=== PATIENT | male | born 1980 | race African-American/Black ===

== ENCOUNTER 2025-01-31 18:12 | Emergency (ER) | payer MEDICAID ==
[~2025-01-31] VITALS: Ht 175.3 cm; Wt 89.0 kg
[2025-01-31 18:13] VITALS: BP 106/72; PULSE 102; RESP 15; TEMP 98.4; O2SAT 94
[2025-01-31] MEDS ORDERED: TETANUS-DIPTH-ACEL PERTUSSIS 0.5ML SYR Tdap IM ONE (19:15)
[2025-01-31] MEDS ORDERED: KETOROLAC TROMETH 60MG/2ML VIAL IM ONE (19:15)
--- NOTE | 2025-01-31 19:37 | DVH ---
EXAM: XY L HAND 3V XRAY CLINICAL HISTORY: Crush injury COMPARISON: None TECHNIQUE: XY L HAND 3V XRAY Findings/Impression: 3 views of the left hand. Possible nondisplaced fracture of the base of the 1st proximal phalanx. Moderate soft tissue edema. No definite fracture of the presumed 3rd digit on the lateral view. There is no evidence of dislocation, blastic, or lytic lesions. No radiopaque foreign bodies.
--- NOTE | 2025-01-31 20:44 | ED.PDOC ---
Musculoskeletal HPI Comments 44 y/o M presents with c/c left hand pain and swelling. Patient reports on onset of symptoms after crushing and injuring his hand, while moving a fridge, 3x days ago. Patient states that he had a small abrasion with minimal bleeding. Patient denies any fever nausea or vomiting. Vital signs were stable on arrival. Chief Complaint: Upper Extremity Time Seen by MD: 19:00 Primary Care Provider: DENIES Reviewed Notes: Nurses Notes, Medications, Allergies Allergies: Coded Allergies: NO KNOWN ALLERGIES (Unverified , 02/17/15) Information Source: Patient Mode of Arrival: Ambulatory Location: Left Extremity Location: Hand Timing: Days Prehospital treatment: None Severity: Moderate Able to Move Extremity: Yes Bear Weight: Limited Pain: Moderate Mechanism: Crush Circumstances: Accident Onset of Symptoms: After Trauma Symptoms: Swelling, Pain DVT Risk Factors: NONE Last Tetanus: UTD Associated signs and symptoms: None Past Medical History PAST MEDICAL HISTORY: Denies Surgical History: Denies all surgeries Family History Family History: Reviewed,noncontributory to illness, No family hx of Cancer, No family hx of DM, No family hx of Heart maximus, No family hx of HTN, No family hx ofKidney maximus, No family hx of Liver maximus, No family hx of Lung maximus, No family hx of Stroke Social History Smoker: Non-Smoker Alcohol: Denies ETOH Use Drugs: Denies Drug Use Lives In: Home Constitutional: denies: chills, diaphoresis, fatigue, fever, malaise, sweats, weakness, others EENTM: denies: blurred vision, double vision, ear bleeding, ear discharge, ear drainage, ear pain, ear ringing, eye pain, eye redness, hearing loss, mouth pain, mouth swelling, nasal discharge, nose bleeding, nose congestion, nose pain, photophobia, tearing, throat pain, throat swelling, voice changes, others Respiratory: denies: cough, hemoptysis, orthopnea, SOB at rest, shortness of breath, SOB with excertion, stridor, wheezing, others Cardiovascular: denies: chest pain, dizzy spells, diaphoresis, Dyspnea on exertion, edema, irregular heart beat, left arm pain, lightheadedness, palpitations, PND, syncope, others Gastrointestinal: denies: abdomen distended, abdominal pain, blood streaked bowels, constipated, diarrhea, dysphagia, difficulty swallowing, hematemesis, melena, nausea, poor appetite, poor fluid intake, rectal bleeding, rectal pain, vomiting, others Genitourinary: denies: burning, dysuria, flank pain, frequency, hematuria, incontinence, penile discharge, penile sore, pain, testicle pain, testicle swelling, urgency, others Neurological: denies: dizziness, fainting, headache, left sided numbness, left sided weakness, numbness, paresthesia, pre-existing deficit, right sided numbness, right sided weakness, seizure, speech problems, tingling, tremors, weakness, others Musculoskeletal: reports: others (Left hand pain and swelling); denies: back pain, gout, joint pain, joint swelling, muscle pain, muscle stiffness, neck pain Integumetry: denies: bruises, change in color, change in hair/nails, dryness, laceration, lesions, lumps, rash, wounds, others Allergic/Immunocompromised: denies: Difficulty Healing, Frequent Infections, Hives, Itching, others Hematologic/Lymphatic: denies: anemia, blood clots, easy bleeding, easy bruising, swollen glands, others Endocrine: denies: excessive hunger, excessive sweating, excessive thirst, excessive urination, flushing, intolerance to cold, intolerance to heat, unexplained weight gain, unexplained weight loss, others Psychiatric: denies: anxiety, bipolar disorder, depression, hopeless, panic disorder, schizophrenia, sleepless, suicidal, others Physical Exam General Appearance: Moderate Distress (Moderate distress due to left hand pain concerns.), Obese HEENT: Normal ENT Inspection, Pharynx Normal, TMs Normal Neck: Full Range of Motion, Non-Tender, Normal, Normal Inspection Respiratory: Chest Non-Tender, Lungs Clear, No Accessory Muscle Use, No Respiratory Distress, Normal Breath Sounds Cardiovascular: No Edema, No JVD, No Murmur, No Gallop, Normal Peripheral Pulses, Regular Rate/Rhythm Breast Exam: Deferred Gastrointestinal: No Organomegaly, Non Tender, No Pulsatile Mass, Normal Bowel Sounds, Soft Genitalia: Deferred Pelvic: Deferred Rectal: Deferred Extremities: Other (Left hand reveals diffuse tenderness to palpation throughout the dorsal aspect with marked edema throughout the dorsal aspect. 2 cm railroad tie abrasion noted to lateral aspect. Reduced range of motion throughout.) Neurologic: Alert, No Motor Deficits, Normal Affect, Normal Mood, No Sensory Deficits Cerebellar Function: Normal Reflexes: Normal Skin: Dry, Normal Color, Warm Lymphatic: No Adenopathy Was a procedure done? Was a procedure done?: No Differential Diagnosis EXT Differential Diagnosis: Fracture, Contusion, Strain, Other (Crush injury) X-Ray, Labs, Meds, VS Vital Signs Date Time Temp Pulse Resp B/P (MAP) Pulse Ox O2 Delivery O2 Flow Rate FiO2 01/31/25 18:13 98.4 102 15 106/72 94 98.4 [place] [address] Ph: [phone] DIAGNOSTIC IMAGING Diagnostic Imaging Report : [id number] Signed PATIENT: LAVERNE LOCO ACCT: [id number] UNIT: [id number] : 1980 LOC: ER ROOM / BED: / AGE / SEX: 44 / M ADM STATUS: REG ER SERVICE 03 ORDERING PHYSICIAN: NEVILLE ROTH PAC PROCEDURE(s): LHAN - L HAND 3V XRAY REASON: Crush injury ORDER NUMBER(s): [id number], ACCESSION NUMBER(s): [id number] EXAM: XY L HAND 3V XRAY CLINICAL HISTORY: Crush injury COMPARISON: None TECHNIQUE: XY L HAND 3V XRAY Findings/Impression: 3 views of the left hand. Possible nondisplaced fracture of the base of the 1st proximal phalanx. Moderate soft tissue edema. No definite fracture of the presumed 3rd digit on the lateral view. There is no evidence of dislocation, blastic, or lytic lesions. No radiopaque foreign bodies. ATED BY: PATI MAYERS DO DICTATED DATE/TIME: 01/31/251934 SIGNED BY: PATI MAYERS DO SIGNED DATE/TIME: 01/31/251934 CC: X-Ray, Labs, Meds, VS Comment All studies performed in the ED were evaluated by me personally. Imaging studies of the hand revealed a nondisplaced fracture of the base of the 1st proximal phalanx. Thumb spica splint was applied. Advised patient follow up with his primary care provider in a week for re-evaluation and probable cast placement. Pain medication as needed. Time of 1ST Reevaluation: 21:11 Reevaluation 1ST: Improved Consultation: PCP Patient Education/Counseling: Diagnosis, Treatment Family Education/Counseling: Diagnosis, Treatment Sepsis Recent Procedure: No On Antibiotic Therapy: No Respiratory Rate >20: No Heart Rate >90: No Temp<36 C (96.8 F) or >38.3 C: No SBP <90 or MAP <65 mmHG: No New Acute Mental Status Change: No Is the patient on CPAP, BIPAP,: No IV fluid given: No Departure 1 Departure Time of Disposition: 21:11 Impression: Primary Impression: Hand fracture, left Disposition: HOME / SELF CARE / HOMELESS Condition: Stable Additional Instructions: Advised pain medication as needed for symptomatic relief as well as follow up with the primary care provider in 5-7 days for re-evaluation and probable cast placement. e-Prescriptions Hydrocodone-Acetaminophen (Hydrocodone Bitartrate/AC 5-325 mg) 1 Tab Tab 1 TAB PO Q6HP PRN, #15 TAB Prov: NEVILLE ROTH PAC 01/31/25 Ibuprofen Micronized (Ibuprofen) 800 Mg Tab 800 MG PO Q8HP PRN, #20 TAB Prov: NEVILLE ROTH PAC 01/31/25 Discharged With: Self, Friend Critical Care Note Critical Care Time?: No Stability Stability form required: No Heart Score Heart Score: Heart Score Response (Comments) Value History N/A 0 EKG N/A 0 Age N/A 0 Risk Factors N/A 0 Troponin N/A 0 Total 0 I personally scribed for NEVILLE ROTH PAC ([email or web address]) on 01/31/25 at 20:44. Electronically submitted by Jb Pereira ([email or web address]). I personally scribed for NEVILLE ROTH PAC ([email or web address]) on 01/31/25 at 20:53. Electronically submitted by Jb Pereira ([email or web address]). NEVILLE ROTH PAC Jan 31, 2025 20:44
[2025-01-31] MEDS ORDERED: IBUP-1455 PO (21:13)
[2025-01-31] MEDS ORDERED: HYDR-4902 PO (21:13)
== END 2025-02-01 02:22 | disposition home or self-care (01) ==
LOC: ER 18:12
DX: S62.92XA Unspecified fracture of left hand, initial encounter for closed fracture (principal); W23.0XXA Caught, crushed, jammed, or pinched between moving objects, initial encounter; Y93.89 Activity, other specified; Y92.89 Other specified places as the place of occurrence of the external cause; Y99.8 Other external cause status
CPT/HCPCS: 29125; 73130